=== PATIENT | female | born 2000 | race Caucasian/White ===

== ENCOUNTER 2022-10-13 22:49 | Observation (INO) ==
[2022-10-14] MEDS ORDERED: KETOROLAC TROMETHAMINE 15 MG/ML VIAL IV STA (00:07)
[2022-10-14 00:38] LABS: Basophils # (auto) 0.07 K/uL (0-0.2); Basophils % (auto) 0.7 %; Eosinophils # (auto) 0.19 K/uL (0-0.50); Eosinophils % (auto) 1.8 %; Hematocrit (blood only) 38.6 % (37.0-47.0); Hemoglobin 13.2 g/dl (12.0-16.0); Immature Granulocytes # (auto) 0.05 K/uL (0.01-0.20); Immature Granulocytes % (auto) 0.5 %; Lymphocytes # (auto) 1.99 K/uL (1.2-3.4); Lymphocytes % (auto) 18.9 %; Mean Corpuscular Hemoglobin 31.1 pg (25.0-34.0); Mean Corpuscular Hgb Conc 34.2 g/dL (32.0-36.0); Mean Platelet Volume 10.5 fL (9.4-12.4); Monocytes # (auto) 1.46 K/uL (0.11-0.59); Monocytes % (auto) 13.9 %; Neutrophils # (auto) 6.77 K/uL (1.40-6.50); Neutrophils % (auto) 64.2 %; Platelet Count 269 K/uL (130-400); RDW Coefficient of Variation 12.1 % (11.5-14.5); RDW Standard Deviation 39.9 fL (36.4-46.3); Red Blood Count 4.24 M/uL (4.20-5.40); White Blood Count 10.53 K/ul (4.8-10.8)
--- NOTE | 2022-10-14 00:52 | Emergency Department Note ---
History of Present Illness General Chief complaint: Upper Extremity Injury/Pain Stated complaint: SHARP PAIN CHEST THROUGHT L SIDE AND BACK, SOB Time Seen by Provider: 10/14/22 00:03 History of Present Illness Maximum Pain Intensity: 7 This 21-year-old female presents the ER complaining left-sided chest pain that hurts when she takes deep breath for the past day. Patient denies fever, chills, trauma to the area, vomiting, diarrhea, leg pain or swelling. She does not smoke. She uses an IUD for control. No history of blood clots. Home Medications Medication Instructions Recorded Confirmed Type dextroamphetamine-amphetamine ER 15 mg PO QAM 10/14/22 10/14/22 History 15 mg 24hr capsule,extend release fluoxetine 20 mg capsule 20 mg PO DAILY 10/14/22 10/14/22 History spironolactone 50 mg tablet 50 - 100 mg PO UD 10/14/22 10/14/22 History Allergies Allergy/AdvReac Type Severity Reaction Status Date / Time No Known Allergies Allergy Unverified 10/14/22 01:51 Past Med/Surg History Medical History No significant past medical history Surgical History No pertinent past surgical history Social History Smoking Status: Never smoker Preferred Language: Malay Feels Safe at Home: Yes Review of Systems A total of 10 systems reviewed and were otherwise negative Physical Exam Vital Signs Vital Signs - 24 hr 10/13/22 22:51 10/14/22 01:26 10/14/22 02:58 Temperature 36.7 C Temperature Source Temporal Artery Scan Pulse Rate 113 H 79 Pulse Rate [Finger] 79 Pulse Rate from SpO2 Sensor 80 Respiratory Rate 18 18 24 Respiratory Effort / Characteristics Non-Labored Spontaneous Respiratory Depth Normal Blood Pressure 149/109 H Blood Pressure [Left Arm] 104/65 Blood Pressure Mean 122 Blood Pressure Mean [Left Arm] 78 Pulse Oximetry 100 96 100 Oxygen Delivery Method Room Air Room Air Sepsis Recent Fever Within 48 Hours No Sepsis New/Unexplained Change in Mental Status No Sepsis Action Taken by Nursing No Action Required 10/14/22 03:00 10/14/22 03:30 10/14/22 04:00 Temperature Temperature Source Pulse Rate 79 97 H 95 H Pulse Rate [Finger] Pulse Rate from SpO2 Sensor 81 96 H 99 H Respiratory Rate 21 26 H 15 Respiratory Effort / Characteristics Respiratory Depth Blood Pressure Blood Pressure [Left Arm] Blood Pressure Mean Blood Pressure Mean [Left Arm] Pulse Oximetry 98 98 98 Oxygen Delivery Method Sepsis Recent Fever Within 48 Hours Sepsis New/Unexplained Change in Mental Status Sepsis Action Taken by Nursing 10/14/22 04:48 Temperature Temperature Source Pulse Rate Pulse Rate [Finger] 82 Pulse Rate from SpO2 Sensor Respiratory Rate 19 Respiratory Effort / Characteristics Respiratory Depth Blood Pressure Blood Pressure [Left Arm] 115/71 Blood Pressure Mean Blood Pressure Mean [Left Arm] 85 Pulse Oximetry 94 Oxygen Delivery Method Room Air Sepsis Recent Fever Within 48 Hours Sepsis New/Unexplained Change in Mental Status Sepsis Action Taken by Nursing VITALS: Vitals are noted on the nurse's note and reviewed by myself. Vital signs stable. GENERAL: Pleasant young lady, in no acute distress, nondiaphoretic, well- developed well-nourished. SKIN: The skin was without rashes, erythema, edema, or bruising. There is no tenting of the skin. Capillary reflex less than 2 seconds. HEAD: Normocephalic atraumatic. EARS: External auditory canals clear, EYES: Pupils equal round and reactive to light and accommodation. Conjunctivae without injection, sclerae without icterus. Extraocular movements intact. NOSE: Patent, turbinates without inflammation or discharge. MOUTH: Mucous membranes moist. Pharynx without erythema or exudate. Uvula midline. Airway patent. Tongue does not deviate. NECK: Supple without nuchal rigidity. No lymphadenopathy. No thyromegaly. Cervical spine is nontender. No JVD. HEART: Regular rate and rhythm without murmurs gallops or rubs. LUNGS: Clear to auscultation bilaterally without wheezes, rales or rhonchi. No retractions or accessory muscle use. ABDOMEN: Positive bowel sounds x 4. Normal tympanic percussion. Soft, nontender, without masses or organomegaly. Zafar sign negative. No guarding or rebound tenderness. No CVA tenderness MUSCULOSKELETAL: No muscle atrophy, erythema, or edema noted. NEURO: Patient was alert and oriented to person place and time. Normal sensation to light and sharp touch. No focal neurological deficits. Course Administered Medications Heparin Sodium/Dextrose (Heparin Sodium/Dextrose) 25,000 units in 500 mls @ 22 mls/hr IV .[id number] [facility]; Protocol Stop: 11/13/22 03:59 Last Admin: 10/14/22 04:20 Dose: 1,100 units/hr, 22 mls/hr Documented By: AN Co-signed By: ROSA Discontinued Medications Fentanyl Citrate (Fentanyl Citrate 100 Mcg/2 Ml Vial) 50 mcg IV NOW STA Stop: 10/14/22 03:44 Last Admin: 10/14/22 03:54 Dose: 50 mcg Documented By: THOMAS Heparin Sodium (Porcine) (Heparin Sod (Porcine) 1000 Unit/Ml) 1 units IV NOW ONE Stop: 10/14/22 03:50 Last Admin: 10/14/22 04:20 Dose: 5,000 units Documented By: AN Co-signed By: ROSA Heparin Sodium/Dextrose (Heparin Iv Adult Wt-Based Standard With Bolus Protocol) 1 each IV NOW STA; Protocol Stop: 10/14/22 03:33 Last Admin: 10/14/22 04:20 Dose: 1 each Documented By: THOMAS Ioversol (Optiray 320 500ml) 125 ml IV ONCE ONE Stop: 10/14/22 03:06 Last Admin: 10/14/22 03:06 Dose: 115 ml Documented By: KT Ketorolac Tromethamine (Ketorolac Tromethamine 15 Mg/Ml Vial) 10 mg IV NOW STA Stop: 10/14/22 00:08 Last Admin: 10/14/22 00:52 Dose: 10 mg Documented By: BE Critical Care Time Critical Care Time: Yes Total Critical Care Time: 35 I have personally spent 35 minutes of critical care time in the direct management of this patient. This includes bedside care, interpretation of diagnostic studies, and testing, discussion with consultants, patient, and family members, and other required patient management activities. This 35 minutes is in excess of all separately billable procedures. Medical Decision Making Medical Records Attestation: I reviewed the patient's medical records. Home Medications Current Medication List: was personally reviewed by me Laboratory Data Attestation: I reviewed the patient's lab results. 10/13/22 23:50 10/13/22 23:50 Lab Results 10/13/22 10/13/22 10/13/22 Range/Units 23:50 23:50 23:50 WBC 10.53 (4.8-10.8) K/ul RBC 4.24 (4.20-5.40) M/uL Hgb 13.2 (12.0-16.0) g/dl Hct 38.6 (37.0-47.0) % MCV 91.0 (80.0-100.0) fL MCH 31.1 (25.0-34.0) pg MCHC 34.2 (32.0-36.0) g/dL RDW Std Deviation 39.9 (36.4-46.3) fL RDW Coeff of Michela 12.1 (11.5-14.5) % Plt Count 269 (130-400) K/uL MPV 10.5 (9.4-12.4) fL Immature Gran % (Auto) 0.5 % Neut % (Auto) 64.2 % Lymph % (Auto) 18.9 % Sierra % (Auto) 13.9 % Eos % (Auto) 1.8 % Baso % (Auto) 0.7 % Neut # (Auto) 6.77 H (1.40-6.50) K/uL Lymph # (Auto) 1.99 (1.2-3.4) K/uL Sierra # (Auto) 1.46 H (0.11-0.59) K/uL Eos # (Auto) 0.19 (0-0.50) K/uL Baso # (Auto) 0.07 (0-0.2) K/uL Immature Gran # (Auto) 0.05 (0.01-0.20) K/uL PT 10.3 (9.0-12.0) Seconds INR 1.0 (0.9-1.1) APTT 29.6 (21.0-31.0) Seconds PTT Ratio 1.1 D-Dimer 3690 H* (0-500) ug/L FEU Sodium 136 (136-145) mmol/L Potassium 4.1 (3.5-5.1) mmol/L Chloride 102 (98-107) mmol/L Carbon Dioxide 29 (21-32) mmol/L Anion Gap 5 (3-11) BUN 11 (6-23) mg/dl Creatinine 0.62 (0.6-1.2) mg/dl Est Cr Clr Drug Dosing 138.0 ml/min Est GFR ( Amer) 149.4 ml/min Est GFR (Non-Af Amer) 128.9 ml/min BUN/Creatinine Ratio 17.7 (10-20) Glucose 95 (70-99(Fasting)) mg/dl Calcium 9.1 (8.5-10.1) mg/dl Total Bilirubin 0.5 (0.2-1.0) mg/dl AST 14 (13-39) U/L ALT 9 (7-52) U/L Alkaline Phosphatase 63 (34-104) U/L Troponin I High Sens < 2.3 (0-14) pg/ml Total Protein 7.8 (6.0-8.3) gm/dl Albumin 4.4 (3.4-5.0) gm/dl Globulin 3.4 (2.5-4.0) gm/dl Albumin/Globulin Ratio 1.3 (0.9-2) POC Ur Test (NEG) SARS-CoV-2, RNA, NAAT (NEGATIVE) 10/13/22 10/14/22 Range/Units 23:50 04:00 WBC (4.8-10.8) K/ul RBC (4.20-5.40) M/uL Hgb (12.0-16.0) g/dl Hct (37.0-47.0) % MCV (80.0-100.0) fL MCH (25.0-34.0) pg MCHC (32.0-36.0) g/dL RDW Std Deviation (36.4-46.3) fL RDW Coeff of Michela (11.5-14.5) % Plt Count (130-400) K/uL MPV (9.4-12.4) fL Immature Gran % (Auto) % Neut % (Auto) % Lymph % (Auto) % Sierra % (Auto) % Eos % (Auto) % Baso % (Auto) % Neut # (Auto) (1.40-6.50) K/uL Lymph # (Auto) (1.2-3.4) K/uL Sierra # (Auto) (0.11-0.59) K/uL Eos # (Auto) (0-0.50) K/uL Baso # (Auto) (0-0.2) K/uL Immature Gran # (Auto) (0.01-0.20) K/uL PT (9.0-12.0) Seconds INR (0.9-1.1) APTT (21.0-31.0) Seconds PTT Ratio D-Dimer (0-500) ug/L FEU Sodium (136-145) mmol/L Potassium (3.5-5.1) mmol/L Chloride (98-107) mmol/L Carbon Dioxide (21-32) mmol/L Anion Gap (3-11) BUN (6-23) mg/dl Creatinine (0.6-1.2) mg/dl Est Cr Clr Drug Dosing ml/min Est GFR ( Amer) ml/min Est GFR (Non-Af Amer) ml/min BUN/Creatinine Ratio (10-20) Glucose (70-99(Fasting)) mg/dl Calcium (8.5-10.1) mg/dl Total Bilirubin (0.2-1.0) mg/dl AST (13-39) U/L ALT (7-52) U/L Alkaline Phosphatase (34-104) U/L Troponin I High Sens (0-14) pg/ml Total Protein (6.0-8.3) gm/dl Albumin (3.4-5.0) gm/dl Globulin (2.5-4.0) gm/dl Albumin/Globulin Ratio (0.9-2) POC Ur Test NEG (NEG) SARS-CoV-2, RNA, NAAT NEGATIVE (NEGATIVE) Imaging Data Attestation: I personally reviewed and interpreted this imaging study as follows: MDM Narrative Prior records/ancillary studies reviewed. Triage Nursing notes reviewed. Additional history obtained from nurse The patient's history was concerning for chest pain. Differential diagnosis: Etiologies such as cardiac ischemia, aortic dissection, pulmonary embolism, pne umonia, pneumothorax, musculoskeletal, infections, pericarditis, myocarditis, esophageal rupture, gastrointestinal, as well as others were entertained. Physical examination: As above. ER treatment provided: An order was placed for continuous cardiac monitoring. The monitor shows a rate of 60-1 50 with a sinus rhythm per my interpretation. Toradol was ordered On reassessment the patient felt better. Diagnostic interpretation by me: The electrocardiogram was negative for pathologic change. Order for chest pain EKG: Normal sinus, normal intervals, Q wave and T wave inversion in lead III, T wave inversion aVR, V1, V2. Impression normal sinus rhythm with subtle T wave changes interpreted by myself I think arrhythmia is unlikely. EKG shows normal sinus rhythm with no interval abnormalities such as QT prolongation or WPW. There are no findings to suggest Brugada syndrome. Cardiac monitoring in the emergency department reveals no tachycardic or bradycardic dysrhythmia. Hypertrophic cardiomyopathy was considered but there are no clear historical elements pointing toward this. EKG is not suggestive. The QRS voltage is not extremely large and there are no suggestive Q waves. The labs Independently Interpreted by myself revealed elevated D-dimer and patient was sent for CTA. Hypercoagulable work-up was ordered No worrisome leukocytosis Imaging studies: Patient: CANDI BROWN (Female) : 00 Status: ER Date: 10/14/22 03:17 Room #: History: PAIN AT LEFT SIDE OF CHEST WITH SOME SOB Slices: [id number] Priors: Tech: Jean Youssef @ [phone] Exams: CTA CHEST Contrast: IV Amt: 115 ML OPTIRAY 320 Accession Numbers: [id number] Referring Physician: REFERRED SELF Preliminary Findings Only See Final Report For Complete Findings CTA CHEST: Pulmonary emboli in segmental/subsegmental arteries of bilateral lower lobes. Pulmonary infarct left lower lobe. Small left pleural effusion. No CT evidence of right heart strain; RV/LV ratio less than 1.0. Radiologist: Keila Selby MD Study ready at 03:22 and initial results transmitted at 03:31 HEART SCORE: Hx: high/mod/low suspicion: 0 ECG: ST depression/nonspecific changes/normal: 0 Age: Greater than 65/45-64/less than 45: 0 Risk factors: (Hypertension, hyperlipidemia, diabetes, coronary disease, tobacco use, cocaine use): 0 Troponin: Greater than 2 times normal limits/1-2 times normal limits/normal: 0 Total: 0 Consultation: A consultation was placed with the hospitalist. The case was discussed and diagnostics were reviewed. The patient was evaluated in the ER for further treatment. Exam and history seem consistent with PE with infarction. Patient was started on heparin with bolus. Hypercoagulable work-up was ordered. Labs and diagnostics were independent interpreted by myself. Medicine is consulted and patient will be admitted. Case is discussed with the admission team. Patient is agreeable to treatment plan. She was reassessed multiple times. By the evaluation outlined above emergent etiologies such as cardiac ischemia, aortic dissection, pneumonia, pneumothorax, infections, pericarditis, myocarditis, gastrointestinal, as well as others were deemed relatively unlikely. The pt informed about the findings as listed above. All questions were answered and pleased with the treatment. The chart was completed utilizing [employer] Speech voice recognition software. Grammatical errors, random word insertions, pronoun errors, and incomplete sentences are an occassional consequence of this system due to software limitations, ambient noise, and hardware issues. Any formal questions or concerns about the content, text, or information contained within the body of this dictation should be directly addressed to the physician expanded duty dental assistant for clarification. Impression & Plan Pulmonary embolism, Pulmonary infarction Discharge Plan Visit Data Chief Complaint: Upper Extremity Injury/Pain Stated Complaint: SHARP PAIN CHEST THROUGHT L SIDE AND BACK, SOB ED Provider: Bing De La [facility] ED Midlevel Provider: Marie Garay Discharge Problem: Pulmonary embolism, Pulmonary infarction Patient Disposition: Admitted As Inpatient Condition: Fair Forms Stand Alone Forms: [email or web address] Prescriptions Prescriptions: No Action fluoxetine 20 mg capsule 20 mg PO DAILY spironolactone 50 mg tablet 50 - 100 mg PO UD Rx Instructions: take 1 tablet in the morning and 2 tablets at bedtime dextroamphetamine-amphetamine 15 mg capsule,extended release 24hr 15 mg PO QAM Rx Instructions: take with food Referrals Referrals: [facility] [Primary Care Provider] - : Pulmonary embolism Qualifiers: Pulmonary embolism type: unspecified Chronicity: acute Acute cor pulmonale presence: unspecified Qualified Code(s): I26.99 - Other pulmonary embolism without acute cor pulmonale
[2022-10-14 01:30] LABS: Albumin Level 4.4 gm/dl (3.4-5.0); Anion Gap 5 (3-11); Bilirubin,Total 0.5 mg/dl (0.2-1.0); Calcium 9.1 mg/dl (8.5-10.1); Carbon Dioxide 29 mmol/L (21-32); Chloride 102 mmol/L (98-107); Potassium 4.1 mmol/L (3.5-5.1); Sodium 136 mmol/L (136-145)
[2022-10-14 01:32] LABS: Partial Thromboplastin Ratio 1.1; Partial Thromboplastin Time 29.6 Seconds (21.0-31.0); Prothrombin Time 10.3 Seconds (9.0-12.0)
[2022-10-14 01:33] LABS: Troponin I High Sensitivity < 2.3 pg/ml (0-14)
[2022-10-14 01:36] LABS: Alanine Aminotransferase 9 U/L (7-52); Albumin Globulin Ratio 1.3 (0.9-2); Alkaline Phosphatase 63 U/L (34-104); Aspartate Aminotransferase 14 U/L (13-39); BUN Creatinine Ratio 17.7 (10-20); Blood Urea Nitrogen 11 mg/dl (6-23); Est GFR (African American) 149.4 ml/min; Est GFR (Non-African American) 128.9 ml/min; Globulin 3.4 gm/dl (2.5-4.0); Glucose 95 mg/dl (70-99(Fasting)); Total Protein 7.8 gm/dl (6.0-8.3)
[2022-10-14 01:50] LABS: D Dimer 3690 ug/L FEU (0-500)
[2022-10-14] MEDS ORDERED: OPTIRAY 320 500ml IV ONE (03:05)
[2022-10-14] MEDS ORDERED: Heparin IV Adult Wt-Based Standard WITH Bolus Protocol IV STA (03:32)
[2022-10-14] MEDS ORDERED: fentaNYL citrate 100 MCG/2 ML VIAL IV STA (03:43)
[2022-10-14] MEDS ORDERED: HEPARIN SOD (PORCINE) 1000 UNIT/ML IV ONE (03:49)
--- NOTE | 2022-10-14 03:56 | History & Physical Report ---
Date of Service October 14, 2022 Assessment & Plan (1) Pulmonary embolism: Plan: Shawanda is a 21 year old female w/ PmHx ADHD, acne, anxiety admitted for pulmonary embolism. Pulonary embolism/Pulmonary infarction: -Initial blood work unremarkable except for D-dimer 3690. -CXR unremarkable. -EKG w/ Q waves and T wave inversion in lead III, T wave inversion aVR, V1, V2 -CTA chest w/ PE in segmental/subsegmental arteries b/l lower lobes. Pulmonary infarct LLL. -No evidence of R heart strain -Mildly tachycardic however O2 sat and BP remain stable. -Hypercoagulable workup pending as no provoking factor identified. -Started on heparin drip overnight. Would benefit from transition to Eliquis. -Admitted to med/tele for monitoring. ADHD: -Continue home dextroamphetamine-amphetamine 15mg qAM. Acne: -Continue daily spironolactone. Anxiety: -Patient stated she is no longer on fluoxetine and now on Paxil however will need to confirm dose with patient. DVT prophylaxis: Heprain gtt overnight then transition to Eliquis or equivalent anticoagulant. F/E/N/GI: Regular diet. Code Status: Full Code Dispo: Med/tele, possibly home w/ anticoagulation tomorrow. (2) Pulmonary infarction: (3) ADHD: History of Present Illness Chief Complaint: L sided chest pain Primary Care Provider: [facility] Shawanda is a 21 year old female w/ PmHx ADHD, anxiety, acne coming to the emergency department for L sided chest pains that hurt when taking deep breath. Patient states that before Monday she worked out for the first time in a while and had a feeling of muscle strain at the center of her chest. She did not have any trauma or leg swelling/redness/tenderness. Monday she started to feel some pain at the left side of her chest as well as when taking deep breaths. Over the next few days she states that the pain worsened and the previous night she had pain so bad at the left chest that it did not matter which position she was in. She started crying and was comforted by her roommates and she found when she tried to take a deep breath she was unable to do so without difficulty. She came to the ED and said her pain improved however over a few hours it came back. She denies any fevers, chills, sore throat, cough, congestion, myalgia. She denies any past history of clots, use of estrogen products (on Kyleena), recent long distance travel, recent surgery, family history of clots. She states she did an at home COVID test the day before coming in which was negative. In the ED WBC 10.53, Hgb 13.2, Platelet 269, PT 10.3, INR 1.0, D-dimer 3690, electrolytes, kidney function, liver enzymes WNL. Tachycardic at times but other vitals WNL. CXR clear with good cardiac silhouette. EKG w/ Q waves and T wave inversion in lead III, T wave inversion aVR, V1, V2. CTA chest w/ pulmonary emboli in segmental/subsegmental arteries of bilateral lower lobes. Pulmonary infarct left lower lobe. Small left pleural effusion. No CT evidence of R heart strain; RV/LV ratio less than 1.0. She was given ketorolac 10mg, fentanyl citrate 50mcg, and started on heparin drip. Allergies Allergy/AdvReac Type Severity Reaction Status Date / Time No Known Allergies Allergy Unverified 10/14/22 01:51 Home Medications Medication Instructions Recorded Confirmed Type dextroamphetamine-amphetamine ER 15 mg PO QAM 10/14/22 10/14/22 History 15 mg 24hr capsule,extend release fluoxetine 20 mg capsule 15 mg PO DAILY 10/14/22 History spironolactone 50 mg tablet 50 - 100 mg PO UD 10/14/22 10/14/22 History Past Med/Surg History Medical History No significant past medical history Surgical History No pertinent past surgical history Social History Smoking Status: Never smoker Second Hand Exposure: No; Do You Dip or Chew Tobacco: No; Tobacco Cessation Education Requested by Patient: No Hx Alcohol Use: Yes Alcohol type: hard liquor Hx Substance Use: No Preferred Language: Serbian Communication Ability: Effective Business Services Vice President Required: No Beliefs That Will Affect Care: None Current Living Situation: Other Current Living Situation Comment: College student, lives with 4 other roommates Other Information That Helps Us Care for You: No Feels Safe at Home: Yes Safety Concerns: Feels Safe At This Time Assistive Devices: None Review of Systems Review of Systems: As per HPI. Physical Exam Constitutional: WD/WN, vitals as above Eyes: PERRL, conjunctivae normal, anicteric sclerae Neck: trachea midline, no thyromegaly Respiratory: Clear to auscultation bilaterally however difficult for patient to take deep inspiration without pain. Cardiovascular: Rate/Rhythm: regular rhythm and + tachycardic Heart Sounds: normal S1 and normal S2 No peripheral edema. Gastrointestinal (Abdomen): normal bowel sounds, soft, nontender, no hepatosplenomegaly Psychiatric: A+Ox3, euthymic affect Results & Data Results & Data ([facility]) Vital Signs (Past 12 Hours) Vital Signs Temp Pulse Pulse Resp BP BP Pulse Ox 10/14/22 01:26 79 18 104/65 96 10/13/22 22:51 36.7 C 113 H 18 149/109 H 100 O2 Del Method 10/14/22 01:26 Room Air 10/13/22 22:51 Room Air Diagnostic Findings CTA CHEST: Pulmonary emboli in segmental/subsegmental arteries of bilateral lower lobes. Pulmonary infarct left lower lobe. Small left pleural effusion. No CT evidence of right heart strain; RV/LV ratio less than 1.0. Supervising Physician Co-Signing Physician Notes Patient seen and examined, chart reviewed, case discussed with Dr. Sesay and I agree with the assessment and plan as above. In brief, patient is a 21yo female with h/o ADHD presenting with pleuritic chest pain ongoing for 2 days. Found to have bilateral PEs She is tachycardic otherwise HD stable No right heart strain noted on CT On exam she is nontoxic in appearance Skin - intact, no rash HEENT - MMM, Neck supple, no JVD Heart - +S1/S2, regular, no m/r/g Lungs - CTA, +Pleuritic chest pain on left Abd - +BS, soft, NT/ND Ext - warm, well perfused, no edema, no tenderness or palpable cord Labs and images reviewed D-dimer elevated to 3690 CTA with bilateral segmental and subsegmental PEs and LLL pulmonary infarct EKG with Qwaves and TWI in III, TWI in V1-V2 Covid is NEGATIVE 21yo female with unprovoked PE. Tachycardic otherwise HD stable. Stable respiratory status on room air. -Hypercoag workup sent by ER - will follow results -Heparin gtt --> DOAC -Continue home medications for ADHD and Acne Resident Activity Tracking Resident Involvement: Resident Care Provided Care Provided: Adult Hospital Medicine (1) Pulmonary embolism Acute cor pulmonale presence: unspecified Chronicity: acute Pulmonary embolism type: unspecified Qualified Code(s): I26.99 - Other pulmonary embolism without acute cor pulmonale
[2022-10-14] MEDS ORDERED: HEPARIN SODIUM/DEXTROSE 25,000 UNITS/500 ML BAG IV SCH (04:00)
--- NOTE | 2022-10-14 07:13 | Progress Note ---
Date of Service October 14, 2022 Assessment & Plan (1) Pulmonary embolism: Plan: Shawanda Ayoub is a 21 year old female with a PMHx of acne, ADHD, and prior COVID-19 infection who presented to the ED on 10/14/22 for concerns of left sided chest pain. She was admitted to the hospital for findings consistent with pulmonary embolism and subsequent pulmonary infarct. Non-massive Pulmonary Embolism -Vital signs stable. SBP 107. No evidence on CT of R heart strain; RV/LV ratio less than 1.0. Normal cardiac biomarkers. -PESI score: 71: Class 2, Low risk. -Initial blood work unremarkable, except for d-dimer for 3690. -EKG: "Normal sinus rhythm. Normal ECG. No previous ECGs available" -10/14/22 Chest XR: "IMPRESSION: There is left basilar consolidation and a small left pleural effusion. Clinical correlation will be required and radiographic follow-up to resolution is recommended." -10/14/22 Chest CTA: "IMPRESSION:1. There are fairly extensive segmental and subsegmental pulmonary emboli within branches of the right and left lower lobe pulmonary arteries. 2. Left basilar consolidation likely represents a pulmonary infarct. 3. Small left pleural effusion." -Given ketorolac 10mg, fentanyl citrate 50mcg, and started on heparin drip in ED. Heparin drip was discontinued. Transitioned to Eliquis/Apixaban 5 Mg Tablet PO BID. -Hypercoagulable work up pending. -Patient's resting heart rate in the 80's increased to 114 with standing, oxygen saturation stayed 99-100%. She was not having chest pain, palpitations, or dizziness. Discussed the possibility of her staying overnight with the patient and her mother. They are both agreeable to the plan. ADHD -Patient did not take medication on 10/13/22 or 10/14/22. -Continue home dextroamphetamine-amphetamine 15mg qAM PRN. Anxiety -Continue on Fluoxetine 15 mg, confirmed with patient. Acne -Continue spironolactone 50 mg, confirmed with patient. FEN: Regular diet. Code status: Full code DVT ppx: Eliquis. Held home meds: Dextroamphetamine - amphatamine, 15 mg. Dispo: med/tele Acute cor pulmonale presence: unspecified Chronicity: acute Pulmonary embolism type: unspecified Qualified Code(s): I26.99 - Other pulmonary embolism without acute cor pulmonale Supervising Physician Co-Signing Physician Notes Medical Student Supervision Note: I was personally present during medical student patient encounter and independently interviewed and examined the patient and verified the brand history and physical, reviewed labs and image studies, discussed the case with Dasia Land and agree with the findings and care plan. Chest pain still present. No shortness of breath. No fever, dizziness. family at bedside. o/e - vitals stable except HR going upto 110 with sitting up. Heart- RRR, Lungs - CTA BL, Abd- soft nt/nd Acute PE - Unprovoked. Cont IV heparin drip. Transition to DOAC in am with possible discharge. To f/u hypercoagulable work up as outpatient. Subjective Shawanda Ayoub is a 21 year old female with a PMHx of acne, ADHD, and prior COVID-19 infection who presented to the ED on 10/14/22 for concerns of left sided chest pain. She was admitted to the hospital for findings consistent with pulmonary embolism and subsequent pulmonary infarct. Before 10/12/22, Shawanda exercised after an extended period of inactivity and developed a sensation like muscle strain in the center of her chest. On 10/12/22, she developed left sided pleuritic chest pain. Between 10/12 and 10/14 around 1 AM, the pain worsened to the point that she was unable to take a deep breath without difficulty. She did not endorse hemoptysis, upper abdominal pain, trauma, leg swelling/redness/tenderness, fevers, chills, sore throat, cough, congestion, or myalgia. She does not have a history of clots, use estrogen products, recent long-distance travel, recent surgery, or family history of clots. She currently has a Kyleena IUD that was placed 2-3 years ago. She was previously on a control pill. This morning, she is doing well. She is still reporting tenderness to the left flank area radiating to her back. She does not endorse leg tenderness or swelling. Review of Systems Review of Systems: See HPI for pertinent positives & negatives. Physical Exam Physical Exam: Constitutional: Well-appearing, no acute distress HEENT: NCAT, no conjunctival injection CV: Regular rhythm, no murmur appreciated, extremities well-perfused, no LE edema or tenderness. Resp: No increased work of breathing. Decreased breath sounds appreciate throughout. No wheezes, rhonchi, or rales. GI: Soft, nondistended, nontender. MSK: No gross deformities appreciated. No tenderness. Skin: warm, dry, no rash appreciated Neuro: alert, oriented, no focal neurologic deficit appreciated Results & Data ([facility]) Vital Signs (Past 12 Hours) Vital Signs Temp Pulse Pulse Resp BP BP Pulse Ox 10/14/22 06:00 83 15 107/64 96 10/14/22 04:48 82 19 115/71 94 10/14/22 04:00 95 H 15 98 10/14/22 03:30 97 H 26 H 98 10/14/22 03:00 79 21 98 10/14/22 02:58 79 24 100 10/14/22 01:26 79 18 104/65 96 10/13/22 22:51 36.7 C 113 H 18 149/109 H 100 O2 Del Method 10/14/22 06:00 Room Air 10/14/22 04:48 Room Air 10/14/22 04:00 10/14/22 03:30 10/14/22 03:00 10/14/22 02:58 10/14/22 01:26 Room Air 10/13/22 22:51 Room Air Laboratory Results 10/13/22 23:50 10/13/22 23:50 Diagnostic Findings Laboratory Results WBC 10.53 K/ul (4.8-10.8) 10/13/22 23:50 RBC 4.24 M/uL (4.20-5.40) 10/13/22 23:50 Hgb 13.2 g/dl (12.0-16.0) 10/13/22 23:50 Hct 38.6 % (37.0-47.0) 10/13/22 23:50 MCV 91.0 fL (80.0-100.0) 10/13/22 23:50 MCH 31.1 pg (25.0-34.0) 10/13/22 23:50 MCHC 34.2 g/dL (32.0-36.0) 10/13/22 23:50 RDW Std Deviation 39.9 fL (36.4-46.3) 10/13/22 23:50 RDW Coeff of Michela 12.1 % (11.5-14.5) 10/13/22 23:50 Plt Count 269 K/uL (130-400) 10/13/22 23:50 MPV 10.5 fL (9.4-12.4) 10/13/22 23:50 Immature Gran % (Auto) 0.5 % 10/13/22 23:50 Neut % (Auto) 64.2 % 10/13/22 23:50 Lymph % (Auto) 18.9 % 10/13/22 23:50 [place] % (Auto) 13.9 % 10/13/22 23:50 Eos % (Auto) 1.8 % 10/13/22 23:50 Baso % (Auto) 0.7 % 10/13/22 23:50 Neut # (Auto) 6.77 K/uL (1.40-6.50) H 10/13/22 23:50 Lymph # (Auto) 1.99 K/uL (1.2-3.4) 10/13/22 23:50 [place] # (Auto) 1.46 K/uL (0.11-0.59) H 10/13/22 23:50 Eos # (Auto) 0.19 K/uL (0-0.50) 10/13/22 23:50 Baso # (Auto) 0.07 K/uL (0-0.2) 10/13/22 23:50 Immature Gran # (Auto) 0.05 K/uL (0.01-0.20) 10/13/22 23:50 PT 10.3 Seconds (9.0-12.0) 10/13/22 23:50 INR 1.0 (0.9-1.1) 10/13/22 23:50 APTT 29.6 Seconds (21.0-31.0) 10/13/22 23:50 PTT Ratio 1.1 10/13/22 23:50 D-Dimer 3690 ug/L FEU (0-500) H* 10/13/22 23:50 Sodium 136 mmol/L (136-145) 10/13/22 23:50 Potassium 4.1 mmol/L (3.5-5.1) 10/13/22 23:50 Chloride 102 mmol/L (98-107) 10/13/22 23:50 Carbon Dioxide 29 mmol/L (21-32) 10/13/22 23:50 Anion Gap 5 (3-11) 10/13/22 23:50 BUN 11 mg/dl (6-23) 10/13/22 23:50 Creatinine 0.62 mg/dl (0.6-1.2) 10/13/22 23:50 Est Cr Clr Drug Dosing 138.0 ml/min 10/13/22 23:50 Est GFR ( Amer) 149.4 ml/min 10/13/22 23:50 Est GFR (Non-Af Amer) 128.9 ml/min 10/13/22 23:50 BUN/Creatinine Ratio 17.7 (10-20) 10/13/22 23:50 Glucose 95 mg/dl (70-99(Fasting)) 10/13/22 23:50 Calcium 9.1 mg/dl (8.5-10.1) 10/13/22 23:50 Total Bilirubin 0.5 mg/dl (0.2-1.0) 10/13/22 23:50 AST 14 U/L (13-39) 10/13/22 23:50 ALT 9 U/L (7-52) 10/13/22 23:50 Alkaline Phosphatase 63 U/L (34-104) 10/13/22 23:50 Troponin I High Sens < 2.3 pg/ml (0-14) 10/13/22 23:50 Total Protein 7.8 gm/dl (6.0-8.3) 10/13/22 23:50 Albumin 4.4 gm/dl (3.4-5.0) 10/13/22 23:50 Globulin 3.4 gm/dl (2.5-4.0) 10/13/22 23:50 Albumin/Globulin Ratio 1.3 (0.9-2) 10/13/22 23:50 POC Ur Test NEG (NEG) 10/13/22 23:50 SARS-CoV-2, RNA, NAAT NEGATIVE (NEGATIVE) 10/14/22 04:00 Impressions Chest X-Ray 10/14/22 00:08 TWO VIEW CHEST CLINICAL HISTORY: Atypical chest pain. FINDINGS: PA and lateral chest radiographs are obtained. No prior studies are available for comparison at the time of dictation. The cardiomediastinal silhouette is unremarkable. There is left basilar consolidation and a small left pleural effusion. The right lung appears clear. There is no pneumothorax. The bony thorax appears intact. IMPRESSION: There is left basilar consolidation and a small left pleural effusion. Clinical correlation will be required and radiographic follow-up to resolution is recommended. ACT 112: Negative or not required by law. Electronically signed by: Vinod Mckenzie M.D. 10/14/2022 7:28 AM Chest CTA 10/14/22 01:50 CT ANGIOGRAM OF THE CHEST CLINICAL HISTORY: Left-sided chest pain. Dyspnea. COMPARISON STUDY: Chest x-ray dated 10/14/2022. TECHNIQUE: Following the IV administration of 115 cc of Optiray 320, CT angiogram of the chest was performed from the upper abdomen to the thoracic inlet utilizing the pulmonary embolus protocol. Images are reviewed in the axial, sagittal, and coronal planes. 3-D MIPS images are created and assessed. IV contrast was administered without complication. A dose lowering technique was utilized adhering to the principles of ALARA. CT DOSE: 229.45 mGy.cm FINDINGS: Thyroid: Imaged portions of the thyroid gland are normal in size and atten uation. Thoracic aorta: The thoracic aorta is normal in caliber and demonstrates standard 3-vessel arch anatomy. No dissection is seen. Pulmonary vasculature: The pulmonary trunk is normal in caliber. There is fairly extensive pulmonary embolus within segmental and subsegmental branches of the l eft lower lobe pulmonary artery. Pulmonary emboli are also seen within segmental and subsegmental branches of the right lower lobe pulmonary artery. Heart: The heart is normal in size and without pericardial effusion. Lungs and pleural spaces: There is a small left pleural effusion with bibasilar consolidation. The right lung appears clear. The trachea and central airways are patent. Mediastinum: There is no mediastinal lymphadenopathy. Luz: Clear. Axillae: There is no axillary lymphadenopathy. Upper abdomen: Partially visualized upper abdominal viscera is within normal limits. Skeletal structures: No lytic or blastic bony lesions are seen. IMPRESSION: 1. There are fairly extensive segmental and subsegmental pulmonary emboli within branches of the right and left lower lobe pulmonary arteries. 2. Left basilar consolidation likely represents a pulmonary infarct. 3. Small left pleural effusion. ACT 112: Negative or not required by law. Electronically signed by: Vinod Mckenzie M.D. 10/14/2022 8:19 AM Medications Administered Current Medications Acetaminophen (Acetaminophen 325 Mg Tab) 650 mg PO Q6H PRN PRN Reason: Pain & Pre PT Stop: 11/13/22 08:56 Last Admin: 10/14/22 12:27 Dose: 650 mg Apixaban (Apixaban 5 Mg Tablet) 10 mg PO BID LINDA Stop: 10/20/22 21:01 Last Admin: 10/14/22 11:11 Dose: 10 mg Miscellaneous (Order Awaiting Action) 1 each N/A QS LINDA Stop: 11/13/22 15:59 Oxycodone HCl (Oxycodone Hcl Ir 5 Mg Tab (Immediate Release)) 5 mg PO Q4H PRN PRN Reason: MODERATE Pain (4,5,6) & Pre PT Stop: 10/28/22 08:56 Last Admin: 10/14/22 09:07 Dose: 5 mg Spironolactone (Spironolactone 25 Mg Tab) 25 mg PO QAM LINDA Stop: 11/13/22 09:14 Last Admin: 10/14/22 11:09 Dose: 25 mg Spironolactone (Spironolactone 25 Mg Tab) 50 mg PO HS LINDA Stop: 11/13/22 20:59
--- NOTE | 2022-10-14 07:29 | XRay Report ---
TWO VIEW CHEST CLINICAL HISTORY: Atypical chest pain. FINDINGS: PA and lateral chest radiographs are obtained. No prior studies are available for compariso n at the time of dictation. The cardiomediastinal silhouette is unremarkable. There is left basilar c onsolidation and a small left pleural effusion. The right lung appears clear. There is no pneumothora x. The bony thorax appears intact. IMPRESSION: There is left basilar consolidation and a small left pleural effusion. Clinical correlati on will be required and radiographic follow-up to resolution is recommended. ACT 112: Negative or not required by law. Electronically signed by: Vinod Mckenzie M.D. 10/14/2022 7:28 AM
--- NOTE | 2022-10-14 08:21 | CT Scan Report ---
CT ANGIOGRAM OF THE CHEST CLINICAL HISTORY: Left-sided chest pain. Dyspnea. COMPARISON STUDY: Chest x-ray dated 10/14/2022. TECHNIQUE: Following the IV administration of 115 cc of Optiray 320, CT angiogram of the chest was pe rformed from the upper abdomen to the thoracic inlet utilizing the pulmonary embolus protocol. Images are reviewed in the axial, sagittal, and coronal planes. 3-D MIPS images are created and assessed. I V contrast was administered without complication. A dose lowering technique was utilized adhering to the principles of ALARA. CT DOSE: 229.45 mGy.cm FINDINGS: Thyroid: Imaged portions of the thyroid gland are normal in size and attenuation. Thoracic aorta: The thoracic aorta is normal in caliber and demonstrates standard 3-vessel arch anato my. No dissection is seen. Pulmonary vasculature: The pulmonary trunk is normal in caliber. There is fairly extensive pulmonary embolus within segmental and subsegmental branches of the left lower lobe pulmonary artery. Pulmonary emboli are also seen within segmental and subsegmental branches of the right lower lobe pulmonary ar corby. Heart: The heart is normal in size and without pericardial effusion. Lungs and pleural spaces: There is a small left pleural effusion with bibasilar consolidation. The ri ght lung appears clear. The trachea and central airways are patent. Mediastinum: There is no mediastinal lymphadenopathy. Luz: Clear. Axillae: There is no axillary lymphadenopathy. Upper abdomen: Partially visualized upper abdominal viscera is within normal limits. Skeletal structures: No lytic or blastic bony lesions are seen. IMPRESSION: 1. There are fairly extensive segmental and subsegmental pulmonary emboli within branches of the righ t and left lower lobe pulmonary arteries. 2. Left basilar consolidation likely represents a pulmonary infarct. 3. Small left pleural effusion. ACT 112: Negative or not required by law. Electronically signed by: Vinod Mckenzie M.D. 10/14/2022 8:19 AM
--- NOTE | 2022-10-14 08:34 | Electrocardiogram Report ---
Test Reason : Blood Pressure : / mmHG Vent. Rate : 084 BPM Atrial Rate : 084 BPM P-R Int : 148 ms QRS Dur : 090 ms QT Int : 368 ms P-R-T Axes : -15 059 019 degrees QTc Int : 434 ms Normal sinus rhythm Normal ECG No previous ECGs available Confirmed by Rafa Escobedo ([id number]) on 10/14/2022 8:34:43 AM Referred By: REFERRED SELF Confirmed By:Rafa Escobedo
[2022-10-14] MEDS ORDERED: oxyCODONE HCL IR 5 MG TAB (IMMEDIATE RELEASE) ONE (09:06)
[2022-10-14] MEDS: oxyCODONE HCL IR 5 MG TAB (IMMEDIATE RELEASE) PO PRN ×2 (09:07→20:11)
[2022-10-14] MEDS: APIXABAN 5 MG TABLET PO SCH ×3 (11:09→20:14)
[2022-10-14] MEDS: SPIRONOLACTONE 25 MG TAB PO SCH (11:09)
[2022-10-14 11:51] LABS: Partial Thromboplastin Ratio 1.6; Partial Thromboplastin Time 42.8 Seconds (21.0-31.0)
[2022-10-14] MEDS: ACETAMINOPHEN 325 MG TAB PO PRN ×2 (12:27→19:25)
--- NOTE | 2022-10-14 12:47 | Billing Data ---
Date of Service October 14, 2022 Coding Level of Care Code 25681 INT INP/OBS CARE
[2022-10-14] MEDS ORDERED: SPIRONOLACTONE 25 MG TAB PO SCH (21:00)
[2022-10-15] MEDS: oxyCODONE HCL IR 5 MG TAB (IMMEDIATE RELEASE) PO PRN (05:46)
[2022-10-15] MEDS: APIXABAN 5 MG TABLET PO SCH (08:02)
[2022-10-15] MEDS: SPIRONOLACTONE 25 MG TAB PO SCH (08:02)
[2022-10-15] MEDS: ACETAMINOPHEN 325 MG TAB PO PRN (08:43)
--- NOTE | 2022-10-15 09:46 | Discharge Summary ---
Date of Service October 15, 2022 Admission HPI Per Admitting Provider Shawanda is a 21 year old female w/ PmHx ADHD, anxiety, acne coming to the emergency department for L sided chest pains that hurt when taking deep breath. Patient states that before Monday she worked out for the first time in a while and had a feeling of muscle strain at the center of her chest. She did not have any trauma or leg swelling/redness/tenderness. Monday she started to feel some pain at the left side of her chest as well as when taking deep breaths. Over the next few days she states that the pain worsened and the previous night she had pain so bad at the left chest that it did not matter whi ch position she was in. She started crying and was comforted by her roommates and she found when she tried to take a deep breath she was unable to do so without difficulty. She came to the ED and said her pain improved however over a few hours it came back. She denies any fevers, chills, sore throat, cough, congestion, myalgia. She denies any past history of clots, use of estrogen products (on Kyleena), recent long distance travel, recent surgery, family history of clots. She states she did an at home COVID test the day before coming in which was negative. In the ED WBC 10.53, Hgb 13.2, Platelet 269, PT 10.3, INR 1.0, D-dimer 3690, electrolytes, kidney function, liver enzymes WNL. Tachycardic at times but other vitals WNL. CXR clear with good cardiac silhouette. EKG w/ Q waves and T wave inversion in lead III, T wave inversion aVR, V1, V2. CTA chest w/ pulmonary emboli in segmental/subsegmental arteries of bilateral lower lobes. Pulmonary infarct left lower lobe. Small left pleural effusion. No CT evidence of R heart strain; RV/LV ratio less than 1.0. She was given ketorolac 10mg, fentanyl citrate 50mcg, and started on heparin drip. Admission Exam Per Admitting Provider Constitutional: WD/WN, vitals as above Eyes: PERRL, conjunctivae normal, anicteric sclerae Neck: trachea midline, no thyromegaly Respiratory: Clear to auscultation bilaterally however difficult for patient to take deep inspiration without pain. Cardiovascular: Rate/Rhythm: regular rhythm and + tachycardic Heart Sounds: normal S1 and normal S2 No peripheral edema. Gastrointestinal (Abdomen): normal bowel sounds, soft, nontender, no hepatosplenomegaly Psychiatric: A+Ox3, euthymic affect Principal Diagnosis unprovoked bilateral subsegmental and segmental pulmonary emboli w/ left pulmonary infarct Discharge Exam Constitutional NAD. Vitals WNL. Respiratory CTA bilaterally. No rhonchi, wheezing, or crackles. Non labored breathing. Cardiovascular RRR. No murmur noted. No LE edema. Psychiatric Alert and oriented. Mood and affect congruent. Discharge Data Allergies Allergy/AdvReac Type Severity Reaction Status Date / Time No Known Allergies Allergy Unverified 10/14/22 01:51 Consultations 10/14/22 03:34 ED Decision to Admit Stat Ordered Studies 10/14/22 01:50 CT angio chest PE protocol Stat Chest X-Ray 10/14/22 00:08 TWO VIEW CHEST CLINICAL HISTORY: Atypical chest pain. FINDINGS: PA and lateral chest radiographs are obtained. No prior studies are available for comparison at the time of dictation. The cardiomediastinal silhouette is unremarkable. There is left basilar consolidation and a small left pleural effusion. The right lung appears clear. There is no pneumothorax. The bony thorax appears intact. IMPRESSION: There is left basilar consolidation and a small left pleural effusion. Clinical correlation will be required and radiographic follow-up to resolution is recommended. ACT 112: Negative or not required by law. Electronically signed by: Vinod Mckenzie M.D. 10/14/2022 7:28 AM Chest CTA 10/14/22 01:50 CT ANGIOGRAM OF THE CHEST CLINICAL HISTORY: Left-sided chest pain. Dyspnea. COMPARISON STUDY: Chest x-ray dated 10/14/2022. TECHNIQUE: Following the IV administration of 115 cc of Optiray 320, CT angiogram of the chest was performed from the upper abdomen to the thoracic inlet utilizing the pulmonary embolus protocol. Images are reviewed in the axial, sagittal, and coronal planes. 3-D MIPS images are created and assessed. IV contrast was administered without complication. A dose lowering technique was utilized adhering to the principles of ALARA. CT DOSE: 229.45 mGy.cm FINDINGS: Thyroid: Imaged portions of the thyroid gland are normal in size and attenuation. Thoracic aorta: The thoracic aorta is normal in caliber and demonstrates standard 3-vessel arch anatomy. No dissection is seen. Pulmonary vasculature: The pulmonary trunk is normal in caliber. There is fairly extensive pulmonary embolus within segmental and subsegmental branches of the left lower lobe pulmonary artery. Pulmonary emboli are also seen within segmental and subsegmental branches of the right lower lobe pulmonary artery. Heart: The heart is normal in size and without pericardial effusion. Lungs and pleural spaces: There is a small left pleural effusion with bibasilar consolidation. The right lung appears clear. The trachea and central airways are patent. Mediastinum: There is no mediastinal lymphadenopathy. Luz: Clear. Axillae: There is no axillary lymphadenopathy. Upper abdomen: Partially visualized upper abdominal viscera is within normal limits. Skeletal structures: No lytic or blastic bony lesions are seen. IMPRESSION: 1. There are fairly extensive segmental and subsegmental pulmonary emboli within branches of the right and left lower lobe pulmonary arteries. 2. Left basilar consolidation likely represents a pulmonary infarct. 3. Small left pleural effusion. ACT 112: Negative or not required by law. Electronically signed by: Vinod Mckenzie M.D. 10/14/2022 8:19 AM Hospital Course (1) Pulmonary embolism: Pt is a 21 year old female with a PMH of acne, ADHD, and prior COVID-19 infection who presented to the ED on 10/14/22 for concerns of left sided chest pain. She was admitted to the hospital for findings consistent with pulmonary embolism and subsequent pulmonary infarct. Unprovoked bilateral pulmonary embolism w/ left infarct - Vitals stable throughout hospitalization aside from mild tachycardia - CT chest showed segmental and subsegmental PE in bilateral LL w/ left infarction - initially treated w/ heparin drip; transitioned to eliquis 10 mg BID - pt to continue eliquis 10 mg BID x7 days then switch to eliquis 5 mg BID for minimum of 3 months - pain controlled w/ oxy 5 mg x3 doses, transitioned to only tylenol prior to discharge - pending coagulation studies, may need anticoagulation longer considering these PEs were unprovoked ADHD - continue home dextroamphetamine-amphetamine 15mg qAM PRN; caution explained to pt w/ this medication and increased HR in the setting of her PEs - will f/u with PCP to determine better regimen as pt explains that her ADHD symptoms are not well controlled Anxiety - continue fluoxetine 15 mg Acne - continue spironolactone 50 mg Diet: Regular Code status: Full code DVT ppx: Eliquis Dispo: home Total Time Total Time Spent Total Time Spent (In Minutes): as per attending attestation Discharge Plan Discharge Items Patient Disposition: Home - Self-Care Reason For Visit: PULMONARY EMBOLISM Discharge Diagnosis: bilateral pulmonary emboli Condition on Discharge: Good Activity: Per Instructions section Non-emergency contact: Primary Care Provider Call non-emergency contact if: you have any medication questions and your symptoms worsen Follow-up/Referrals: Tatum Chen DO [Resident] - (PLEASE CALL YOUR PRIMARY CARE PROVIDER TO SCHEDULE A DISCHARGE FOLLOW-UP APPOINTMENT WITHIN 7-10 DAYS ) Diet: Regular Addtl Attending Provider Instructions: You were admitted to the hospital for left sided chest/side pain that radiated into your back. A CT angiogram (looking at the blood vessels) of your chest was performed and showed blood clots within arterial branches of the right and left lower lobes of both of your lungs. You were treated with a blood thinning medication called heparin through an IV. This medication was transitioned to an oral blood thinner called Eliquis. Lab work was drawn to establish if there is any mechanism in your body that is affecting the way your body clots blood (which may have caused these blood clots). These labs were still pending upon discharge. You should ask your [facility] physician about these results and what that means for your treatment moving forward. Since these blood clots in your lungs are what is known as "unprovoked" (meaning there isn't a clear reason why it occurred), there are some things you should do to try to prevent recurrences. - Do not take any control that contains estrogen (like the combined oral control pill). - If travelling long distances by car or plane, make sure to walk around or "pump" your calf muscles every 1-2 hours and/or wearing compression socks. - Make sure to avoid pain medications that contain aspirin or ibuprofen. Tylenol (acetaminophen) is safe. If stronger pain medication is needed, you should reach out to your primary care provider. A discharge summary will be sent to your primary care physician to ensure continuity of care. Please bring this discharge summary with you to your next office appointment so that your provider can review it at that time. Medications: Your medication list has been reviewed and reconciled upon discharge to ensure accuracy and continuity of care. An updated list of all your medications is included with your hospital discharge paperwork. Please review this list closely and make note of any changes to your medications. - You should continue taking the blood thinning medication, Eliquis. This will be 10 mg (2 pills) twice per day for a total of 7 days (including your doses in the hospital). - After the 7 days, you should take 5 mg (1 pill) twice per day. - You may continue your other home medications as before. Follow up appointments: - Make a follow up appointment with your PCP within the next week. It is very important that you follow up with them shortly after discharge from the hospital. - Keep all of your follow up appointments as already scheduled. If you cannot make an appointment, notify your provider. CONTACT YOUR PRIMARY CARE PROVIDER if you experience any of the following: - Difficulty following your treatment plan - Difficulty taking any of your medications CALL 911 OR GO TO THE EMERGENCY DEPARTMENT if you experience any of the following: - Sudden, severe abdominal pain or nausea/vomiting - Severe chest pain or chest pain that radiates to your jaw or arm - Sudden, severe shortness of breath or difficulty breathing Pending Studies at Discharge: Yes Stand-Alone Forms: [facility], Smoking Cessation Medications and DC Order Prescriptions: New apixaban 5 mg tablet 10 mg PO BID Qty: 82 0RF Rx Instructions: Take 2 pills (10 mg) twice a day for 5 more days. Then, transition to taking 1 pill (5 mg) twice per day. Continued fluoxetine 20 mg capsule 15 mg PO DAILY spironolactone 50 mg tablet 50 - 100 mg PO UD Rx Instructions: take 1 tablet in the morning and 2 tablets at bedtime dextroamphetamine-amphetamine 15 mg capsule,extended release 24hr 15 mg PO QAM Rx Instructions: take with food Discharge Orders: Discharge Order (Routine); Ordered 10/15/22 Ordered By: Tatum Chen Admission Data Admit Date/Time: 10/14/22 05:06 Attending Provider: Rand Valenzuela Admit Provider: Cody Sesay Primary Care Provider: [facility] Other Providers: Nancy Alexandra Other Interventions: Discharge Summary Assessment (RN) Last Done: 10/15/22 11:33 Supervising Physician Co-Signing Physician Notes Resident Physician Supervision Note: I independently interviewed and examined the patient and verified the brand history and physical, reviewed labs and image studies and agree with resident findings and care plan. Resident Activity Tracking Resident Involvement: Resident Care Provided Care Provided: Adult [facility]
[2022-10-20 23:48] LABS: Anti Cardiolipin Ab IgG <2.0 GPL-U/mL; Anti Cardiolipin Ab IgM <2.0 MPL-U/mL; Anti-Thrombin III Activity 107 % normal (80-135); B2 Glycoprotein IgG <2.0 U/mL (<20.0); B2 Glycoprotein IgM <2.0 U/mL (<20.0); PTT LA Screen 41 sec (<=40); Protein S Functional(Activity) 110 % normal (60-140)
[2022-10-21 09:18] LABS: Lupus Hex Phase (Rflxdonotord) Weak Positive (Negative)
== END 2022-10-15 12:08 | disposition home or self-care (01) ==
LOC: ED 22:49 → EDINP 22:49 → SUATTDRO 10-14 05:06 → 2N 10-14 08:41
DX: I26.99 Other pulmonary embolism without acute cor pulmonale